=== PATIENT | female | born 1930 | race Caucasian/White ===

== ENCOUNTER 2017-03-26 20:17 | Emergency (ER) | payer MEDICARE ==
[2017-03-26 21:01] LABS: BASOPHILS 0.4 % (0-2); EOSINOPHILS 0 % (0-7); HEMATOCRIT 37.8 % (36.0-48.0); HEMOGLOBIN 12.1 g/dL (12-16); IMMATURE GRANULOCYTES 0.6 % (0-5); MCH 31.5 pg (26.0-34.0); MCV 98.4 fL (80.0-100.0); MEAN PLATELET VOLUME 9.7 fL (7.4-10.4); MONOCYTES 9.4 % (2-11); NEUTROPHILS 58.6 % (40-80); PLATELET COUNT 127 10x3/uL (130-400); RBC 3.84 10x6/uL (4.00-5.40); RDW 13.5 % (11.5-14.5); WBC 4.9 10x3/uL (4.8-10.8)
[2017-03-26 21:28] LABS: ALBUMIN 3.5 g/dL (3.4-5.0); ALKALINE PHOSPHATASE 85 U/L (46-116); ALT (SGPT) 23 U/L (10-68); CALC OSMOLALITY 279 mosm/kg (275-300); CALCIUM 9.3 mg/dL (8.5-10.1); CARBON DIOXIDE 29.4 mmol/L (21.0-32.0); CHLORIDE - SERUM 102 mmol/L (98-107); CREATININE - SERUM 1.3 mg/dL (0.6-1.3); GLUCOSE 107 mg/dL (74-106); POTASSIUM - SERUM 4.9 mmol/L (3.5-5.1); PROTEIN - SERUM 6.9 g/dL (6.4-8.2); SODIUM 135 mmol/L (136-145); UREA NITROGEN 41 mg/dL (7-18); eGFR NON AFRICAN AMERICAN 41 mL/min (90-120)
[2017-03-26 21:39] LABS: CHOL - HDL RATIO 5.9 ratio (2.3-4.1); CHOLESTEROL, TOTAL 247 mg/dL (0-200); CKMB 0.1 U/L (0.0-3.6); CREATINE KINASE 73 UL (21-215); HDL CHOLESTEROL 42 mg/dL (32-96); LDL CHOLESTEROL 175 mg/dL (0-100); LDL-HDL RATIO 4.2 ratio (1.5-3.5); TRIGLYCERIDE 153 mg/dL (30-200); TROPONIN-I < 0.017 ng/mL (0.000-0.060)
== END 2017-03-27 00:55 | disposition home or self-care (01) ==
LOC: EDBD 20:17 → D.ER 20:17
PROVIDERS: Family Medicine
DX: R07.89 Other chest pain (principal); Z85.3 Personal history of malignant neoplasm of breast